=== PATIENT | male | born 1955 | race Caucasian/White ===

== ENCOUNTER 2025-09-29 08:18 | Day surgery (SDC) | payer MEDICARE, OTHER ==
--- NOTE | 2025-09-22 14:16 | ELECTROCARDIOGRAPH REPORT ---
[facility] Test Date: 2025-09-22 Test Time: 14:13:25 Pat Name: ILDEFONSO MCLEAN Department: [facility]-PRE-OP Patient ID: [facility]-[id number] Room: Gender: M [employer]: KELSEY : 1955 Requested By: SARAH JOHNSNO Order Number: [id number] Reading MD: Dr. Brianna Styles Measurements Intervals [place] Rate: 46 P: 55 IN: 194 QRS: 26 QRSD: 95 T: 36 QT: 454 QTc: 398 Interpretive Statements Sinus bradycardia Electronically Signed On 09-22-2025 19:57:[address] Brianna Styles Please click the below link to view image of tracing.
[2025-09-22 14:46] LABS: MEAN PLATELET VOLUME 7.6 FL (7.4-10.4); PRE OP HEMATOCRIT 41.6 % (42.0-52.0); PRE OP HEMOGLOBIN 14.1 g/dL (14.0-17.9); PRE OP PLATELET COUNT 278 X10'3 (140-440); PRE OP WHITE BLOOD COUNT 7.7 10'3 (4.8-10.8); RED CELL DISTRIBUTION WIDTH 13.5 % (11.5-14.5)
[2025-09-22 14:57] LABS: PRE OP GLUCOSE 105 MG/DL (70-104); PRE OP POTASSIUM 4.1 MMOL/L (3.4-5.1); PRE OP SODIUM 141 MMOL/L (135-145); TOTAL CARBON DIOXIDE 28.4 MMOL/L (24-32)
[2025-09-22 14:58] LABS: CREATININE 1.06 MG/DL (0.60-1.10); PRE OP ALT 21 U/L (30-65); PRE OP ANION GAP 9 (8-16); PRE OP AST 21 U/L (10-37); PRE OP BILIRUB, TOTAL 1.0 MG/DL (0.0-1.0); eGFR 69 ML/MIN
[~2025-09-29] VITALS: Ht 180.3 cm; Wt 104.8 kg
[2025-09-29] VITALS (7 sets, daily range): BP systolic 129–144; BP diastolic 61–67; PULSE 44–53; RESP 11–16; TEMP 97.2; O2SAT 94–100
[2025-09-29] MEDS: ceFAZolin 2gm/dext,iso 50mL 50 ML IV ONE (05:30)
[~2025-09-29 08:18] MED LIST: AMLO2.5T5 PO; APIX5TAB3 PO; ATOR40TA71 PO; LEVE100023 PO
[2025-09-29] MEDS: ringers solution, lacted 1,000 ML IV SCH (09:15)
[2025-09-29] MEDS ORDERED: LIDOcaine 2% (20mg/ml) 5ml vial ONE (09:41)
[2025-09-29] MEDS ORDERED: BUPIVAcaine/PF 2.5mg/ml (0.25%) 10ml vial ONE (09:42)
[2025-09-29] MEDS ORDERED: LIDOcaine 1% 30ml preserv. free vial ONE (10:03)
[2025-09-29] MEDS ORDERED: midazolam 1 mg/ML 2ml injection ONE (10:19)
[2025-09-29] MEDS ORDERED: fentaNYL/PF 50MCG/1 ML 2ML syringe ONE (10:19)
[2025-09-29] MEDS ORDERED: glycopyrrolate 0.2mg/ml inj ONE (10:29)
[2025-09-29] MEDS ORDERED: propofol 10mg/ml 20ml vial IV ONE (10:30)
[2025-09-29] MEDS: BUPIVAcaine/PF 2.5mg/ml (0.25%) 10ml vial IJ ONE (10:45)
[2025-09-29] MEDS: LIDOcaine 2% (20mg/ml) 5ml vial IV ONE (10:45)
--- NOTE | 2025-09-29 11:07 | OPERATIVE REPORT ---
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 On the ring finger the fracture healed but on the small finger he ended up with a painful contracture of the DIPJ joint. Surgery is indicated to improve function and relieve pain. Risks and benefits were discussed with the patient including but not limited to infection, bleeding, failure of healing and hardware pain. He agreed to proceed. Once in the operating room the arm was prepped and draped in usual manner. The block was given and time-out procedure was performed. There was scar tissue in the dorsum of the finger this was incorporated in the zigzag skin incision to effect a better closure. Skin flaps were elevated and the joint was unrecognizable because of the trauma. A sagittal saw and rongeur were used to create flap edges of the middle and distal phalanges. The guide pin was advanced through the distal phalanx and then retrograded down the shaft of the middle phalanx under fluoro. Measurements were obtained and over drilling was done. The screw was then placed over the guide pin which was then removed. Final fluoro imaging showed good position of the screw and compression of the arthrodesis site. Clinically the finger was in good position as well. The incision was irrigated and closed with a Prolene suture. Marcaine was injected and a sterile dressing was applied along with a plaster splint out to the tip of the finger. The tourniquet was released the hand perfused well. The patient was taken to the recovery room in stable condition NIGEL CARRILLO Jr., MD Sep 29, 2025 11:07
== END 2025-09-29 12:00 | disposition home or self-care (01) ==
LOC: PAS 08:18
PROVIDERS: ATTEND Orthopaedic Surgery Hand Surgery
DX: M19.041 Primary osteoarthritis, right hand (principal); I10 Essential (primary) hypertension; I48.91 Unspecified atrial fibrillation; E66.9 Obesity, unspecified; Z79.01 Long term (current) use of anticoagulants; Z79.2 Long term (current) use of antibiotics; Z79.891 Long term (current) use of opiate analgesic; Z79.899 Other long term (current) drug therapy; Z98.84 Bariatric surgery status; Z98.890 Other specified postprocedural states; Z88.6 Allergy status to analgesic agent
CPT/HCPCS: 26860; 36415; 80053; 82948; 85025; 93005; J2003; J2250; J2704; J3010; J3490; J7120; Z7512; Z7610